=== PATIENT | male | born 1955 | race Two or more races ===

== ENCOUNTER 2018-04-23 08:38 | Emergency (ER) | payer BC ==
[~2018-04-23] VITALS: Ht 172.7 cm; Wt 88.5 kg
[2018-04-23 08:40] VITALS: BP 146/91
[2018-04-23] MEDS ORDERED: NAPROXEN 500 MG TABLET PO STA (08:46)
--- NOTE | 2018-04-23 09:18 | RAD ---
Examination: ANKLE LEFT 3V History: Pt states fell on ice yesterday, swelling and bruising Comparison/Correlation: None Findings: 3 images of the left ankle were obtained. Oblique fractures of the distal fibular diametaphyseal region at the lateral malleolus noted. Mild displacement is evident best seen on the oblique views. Ankle joint mortise is otherwise unremarkable. Small calcaneal spur noted. Significant soft tissue swelling about the lateral aspect of the ankle. Impression: Oblique fractures through the distal fibular diametaphyseal region of the lateral malleolus. Soft tissue swelling. Electronically signed by: Gerber Hankins MD (04/23/2018 9:14 AM) [facility]
[2018-04-23] MEDS ORDERED: HYDR-3164 PO (09:56)
--- NOTE | 2018-04-23 09:56 | PHYS DOC ---
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 Patient denies any loss of consciousness. States his pain is worse on weight-bearing to the left lower extremity. He states he has been taking ibuprofen with minimal relief. Review of Systems Review of Systems Constitutional: Denies fever or chills [] Musculoskeletal: reports left lateral ankle pain Integument: Denies rash or skin lesions [] Neurologic: Denies headache, focal weakness or sensory changes [] All other systems were reviewed and found to be within normal limits, except as documented in this note. Current Medications Current Medications Current Medications Medications (Trade) Dose Ordered Sig/Any Start Time Stop Time Status Last Admin Dose Admin Naproxen (Naprosyn) 500 mg 1X STAT 04/23/18 08:46 04/23/18 08:59 DC 04/23/18 09:04 500 MG Allergies Allergies Allergies Coded Allergies Type Severity Reaction Last Updated Verified Penicillins Allergy Intermediate RASH 04/23/18 Yes Physical Exam Physical Exam Constitutional: Well developed, well nourished, no acute distress, non-toxic appearance. [] Skin: Warm, dry, no erythema, no rash. [] Back: No tenderness, no CVA tenderness. [] Extremities: Left lateral ankle with moderate soft tissue swelling and bruising. Tenderness on palpation of the left lateral ankle. Full range of motion to the left ankle and toes. +2 left pedal pulse. Cap refill is <2 seconds to the left toes Neurologic: Alert and oriented X 3, normal motor function, normal sensory function, no focal deficits noted. [] Psychologic: Affect normal, judgement normal, mood normal. [] Current Patient Data Vital Signs Vital Signs Date Time Temp Pulse Resp B/P (MAP) Pulse Ox O2 Delivery O2 Flow Rate FiO2 04/23/18 08:40 98.2 67 16 146/91 (109) 97 Room Air 98.2 EKG EKG [] Radiology/Procedures Radiology/Procedures PROCEDURE: ANKLE LEFT 3V Examination: ANKLE LEFT 3V History: Pt states fell on ice yesterday, swelling and bruising Comparison/Correlation: None Findings: 3 images of the left ankle were obtained. Oblique fractures of the distal fibular diametaphyseal region at the lateral malleolus noted. Mild displacement is evident best seen on the oblique views. Ankle joint mortise is otherwise unremarkable. Small calcaneal spur noted. Significant soft tissue swelling about the lateral aspect of the ankle. Impression: Oblique fractures through the distal fibular diametaphyseal region of the lateral malleolus. Soft tissue swelling. Electronically signed by: Gerber Montoya MD (04/23/2018 9:14 AM) [facility] DICTATED and SIGNED BY: GERBER MONTOYA MD DATE: 04/23/18912 Course & Med Decision Making Course & Med Decision Making Pertinent Labs and Imaging studies reviewed. (See chart for details) This is a 62-year-old male patient who presents to the ED today with left lateral ankle pain that began yesterday after he fell. Left ankle x-rays interpreted by radiologist were noted for-Oblique fractures through the distal fibular diametaphyseal region of the lateral malleolus. Soft tissue swelling. Patient was placed in a stirrup and posterior leg splint by the social services technician, neurovascular exam done by me is intact. Ice elevation encouraged. Instructed to contact the orthopedic doctor's office today and set up a follow-up appointment. Dragon Disclaimer Dragon Disclaimer This electronic medical record was generated, in whole or in part, using a voice recognition dictation system. Splinting Splinting : Location: left ankle Hand-Made Type: orthoglass Splint: sugar-tong (with posterior OCL) Pre-Proc Neuro Vasc Exam: normal Post-Proc Neuro Vasc Exam: normal, unchanged from pre-exam Departure Departure Impression: Primary Impression: Closed fibular fracture Additional Impression: Fall from standing Disposition: 01 HOME, SELF-CARE Condition: STABLE Referrals: JOSHUA ALCANTARA JR, MD (PCP) JOSHUA FREIRE MD contact his office today and set up a follow up appointment Patient Instructions: Fibular Fracture with Rehab-SportsMed Additional Instructions: You were seen for oblique fractures of the left distal fibula. Ice elevate the extremity contact the provided orthopedic doctor today and set up a follow-up appointment in the clinic. Take the prescribed medications as needed for pain. Do not take additional Tylenol with the hydrocodone. Scripts Hydrocodone/Apap 5-325 (NORCO 5-325 TABLET) 1 Each Tablet 1 TAB PO Q6HRS PRN for PAIN, #25 TAB Prov: SHAYNE QUINTANA APRN 04/23/18 Attending Signature Attending Signature I have reviewed the PA/QI SPECIALIST's note and plan of care. I was available for consultation as needed during the patient's visit in the emergency department. I agree with the clinical impression, plan, and disposition. Problem Qualifiers Primary Impression: Closed fibular fracture Encounter type: initial encounter Fibula location: distal Fracture morphology: other fracture Laterality: left Qualified Codes: S82.832A - Other fracture of upper and lower end of left fibula, initial encounter for closed fracture Additional Impression: Fall from standing Encounter type: initial encounter Qualified Codes: W19.XXXA - Unspecified fall, initial encounter SHAYNE QUINTANA APRN Apr 23, 2018 09:56 LESLYE CHANG DO Apr 23, 2018 21:49
== END 2018-04-23 10:06 | disposition home or self-care (01) ==
LOC: ER 08:38
DX: S82.832A Other fracture of upper and lower end of left fibula, initial encounter for closed fracture (principal); Z88.0 Allergy status to penicillin; Y93.89 Activity, other specified; W00.0XXA Fall on same level due to ice and snow, initial encounter; Y92.242 Post office as the place of occurrence of the external cause; Y99.8 Other external cause status
CPT/HCPCS: 29515; 73610; 99284-25